=== PATIENT | female | born 2000 | race Two or more races ===

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

== ENCOUNTER 2022-03-20 23:54 | Emergency (ER) | payer BC, SELFPAY ==
[2022-03-20 23:58] VITALS: BP 112/72; PULSE 88; O2SAT 99
[2022-03-21 00:03] VITALS: BP 124/77; PULSE 98; RESP 14; TEMP 36.8; O2SAT 97
[2022-03-21 00:09] VITALS: RESP 24; BMI 28.9
--- NOTE | 2022-03-21 00:24 | ED_ITS ---
HPI - Fall General Chief Complaint: Fall Stated Complaint: fall Time Seen by Provider: 03/21/22 00:23 Source: patient Mode of arrival: EMS Limitations: no limitations History of Present Illness HPI Narrative: Patient history of ADHD anxiety depression came here because of fall. Patient this is 3rd time happened that she does not remember what cause of fall. Appetite patient was walking outside and fell customer professional saw her and ask for whether she needs any help but patient does not remember why she fell she was alert oriented no confusion no seizure activity noticed here also patient awake denies any significant anxiety or depression currently. No signs of injuries complaining of pain in the lower part of the head. Also complains slight nausea no vomiting patient does have history of febrile seizure once but never had seizure after that. No fever no chills no cough no injuries no tongue bite Related Data Allergies Allergy/AdvReac Type Severity Reaction Status Date / Time Penicillins Allergy Unknown Verified 12/24/21 01:11 shellfish derived Allergy Unknown Verified 12/24/21 01:11 Review of Systems Review of Systems: Yes all other systems are reviewed and are negative [facility] Past Medical History Medical History ADHD Anxiety Asthma Major depression Social History Social History Advance Directives: No Patient : No Physical Exam Vital Signs: Vital Signs: Last Vital Signs Temp 98.3 F 03/21/22 00:03 Pulse 109 H 03/21/22 01:08 Resp 24 H 03/21/22 00:09 BP 108/78 03/21/22 01:08 Pulse Ox 97 03/21/22 00:03 BMI result Body Mass Index 28.9 Appearance: Alert. Oriented X3. No acute distress. Eyes: PERRLA, No Nystagmus ENT: Pharynx normal. Oral Mucosa moist tongue normal teeth normal Neck: Normal inspection. Neck supple. Diffuse para spinal tenderness no midline tenderness good range of movement CVS: Normal heart rate and rhythm. Pulses normal. Respiratory: No respiratory distress. Equal air entry bilateral, no wheezing/rales/rhonchi Abdomen: Soft and nontender. Bowel sounds are present, no mass palpable, no CVA tenderness Skin: Skin warm and dry. Normal skin color. Normal skin turgor. Extremities: No lower extremity edema. No calf tenderness Neuro: Oriented X 3. No motor deficit. No sensory deficit.No cerebellar signs , cranial nerves II-XII intact MDM - Fall MDM Narrative Medical decision making narrative: Patient with frequent falls etiology not very clear no witnessed seizures no postictal confusion patient advised to follow a neurologist to rule out absence seizures/pseudoseizures/anxiety Lab Data Attestation: I reviewed the patient's lab results. Labs: Lab Results 03/21/22 03/21/22 Range/Units 01:45 01:45 Urine Color DK YELLOW Urine Appearance HAZY Urine pH 7.0 (5.0-8.0) Ur Specific [place] 1.020 (1.005-1.025) Urine Protein NEG (NEG-TRACE) MG/DL Urine Glucose (UA) NEG (NEG) MG/DL Urine Ketones NEG (NEG) MG/DL Urine Blood 1+ H (NEG) Urine Nitrite NEG (NEG) Ur Leukocyte Esterase NEG (NEG) Urine RBC 0 (0) /HPF Urine WBC 0-2 (0-4) /HPF Ur Squamous Epith Cells 2+ /LPF Urine Bacteria 2+ /LPF Urine Mucus 4+ /LPF Urine Test NEGATIVE (NEGATIVE) Discharge Plan Discharge Clinical Impression: Syncope Patient Disposition: Home, Self-Care Instructions: Syncope (ED) Additional Instructions: You possibly having pseudoseizures/atypical seizures Follow-up with neurologist for further workup no driving until diagnosis is made Referrals: Lakshmi Camacho MD [Physician] - 1 week
--- NOTE | 2022-03-21 00:32 | ECG_ITS ---
Test Reason : SYNCOPE Blood Pressure : / mmHG Vent. Rate : 087 BPM Atrial Rate : 087 BPM P-R Int : 126 ms QRS Dur : 102 ms QT Int : 370 ms P-R-T Axes : 058 062 044 degrees QTc Int : 445 ms Normal sinus rhythm Incomplete right bundle branch block Nonspecific T wave abnormality Abnormal ECG When compared with ECG of 24-DEC-2021 01:20, No significant change was found Referred By: Pavan Landeros Electronically Signed By:Alvaro Eastman
[2022-03-21 01:00] VITALS: BP 104/59; PULSE 90
[2022-03-21 01:04] VITALS: BP 116/73; PULSE 91
[2022-03-21 01:08] VITALS: BP 108/78; PULSE 109
--- NOTE | 2022-03-21 01:38 | PC.NURSE ---
pt ambulated to br to void with no c/o dizziness or pain
[2022-03-21 01:51] LABS: Appearance Urine HAZY; Color Urine DK YELLOW; Glucose Urine UA NEG (NEG); Leukocyte Esterase Urine NEG (NEG); Nitrite Urine NEG (NEG); UACC Culture Trigger NO; Urine Blood 1+ (NEG); Urine Ketones NEG (NEG); Urine Protein NEG (NEG-TRACE)
[2022-03-21 01:52] LABS: UPreg QC Valid YES; Urine Pregnancy NEGATIVE (NEGATIVE)
[2022-03-21 01:59] LABS: Bacteria Urine 2+ /LPF; Mucus Urine 4+ /LPF; RBC Urine 0 /HPF (0); Squamous Epithelial Cell Urine 2+ /LPF; WBC Urine 0-2 /HPF (0-4)
== END 2022-03-21 02:41 | disposition home or self-care (01) ==
PROVIDERS: Emergency Provider Internal Medicine
DX: R55 Syncope and collapse (principal); Z79.899 Other long term (current) drug therapy
CPT/HCPCS: 81001; 81025; 93005; 99283; 99285